=== PATIENT | female | born 1980 | race Asian ===

== ENCOUNTER → 2019-11-28 10:38 | Outpatient (CLI) | payer OTHER, SELFPAY ==
[2019-11-28 12:03] LABS: Add Manual Diff / Slide Review NO; Basophils Absolute Auto 0 /uL (0-100); Basophils Percent Auto 0.8 % (0-2); Eosinophils Absolute Auto 100 /uL (0-450); Eosinophils Percent Auto 2.1 % (2-4); Hematocrit 37.9 % (36-46); Hemoglobin 13.3 g/dL (12.0-16.0); Lymphocytes Absolute Auto 1800 /uL (1100-4500); Lymphocytes Percent Auto 40.6 % (25-40); Mean Corpuscular HGB Conc 35.2 % (30-36); Mean Corpuscular Hemoglobin 31.9 PG (26-34); Mean Corpuscular Volume 90.7 fL (80-100); Monocytes Absolute Auto 300 /uL (0-900); Monocytes Percent Auto 7.3 % (3-14); Neutrophils Absolute Auto 2200 /uL (1500-7000); Neutrophils Percent Auto 49.2 % (50-75); Platelet Count 214 X10^3/uL (150-400); Red Blood Cell Count 4.18 X10^6/uL (4.0-5.2); Red Cell Distribution Width 12.2 % (11.6-14.8); White Blood Cell Count 4.5 X10^3/uL (4.5-11.0)
[2019-11-28 12:34] LABS: Alanine Aminotransferase 16 IU/L (<35); Albumin 4.3 g/dL (3.5-5.0); Albumin Globulin Ratio 1.5 (1.0-2.8); Alkaline Phosphatase 55 U/L (38-126); Aspartate Aminotransferase 25 IU/L (14-36); Bilirubin Total 1.1 mg/dL (0.2-1.3); Blood Urea Nitrogen 11 mg/dL (7-17); Calcium 9.5 mg/dL (8.4-10.2); Carbon Dioxide 26 mmol/L (22-32); Chloride 103 mmol/L (98-107); Estimated Glomerular Filt Rate > 60.0 mL/min (>60); Globulin 2.9 g/dL (1.7-4.1); Glucose 88 mg/dL (70-100); HEMOLYSIS < 15 (0-50); Potassium 4.4 mmol/L (3.4-5.1); Sodium 137 mmol/L (137-145); Total Protein 7.2 g/dL (6.3-8.2)
[2019-11-28 12:50] LABS: Vitamin D 25 Hydroxy (D3) 31.1 ng/mL (30.0-100.0)
[2019-11-28 13:03] LABS: TSH w/ Reflex to FT4 1.11 uIU/mL (0.47-4.68)
== END ==
PROVIDERS: Referring Provider Registered Nurse Diabetes Educator; Visit Provider Registered Nurse Diabetes Educator
DX: Z00.00 Encounter for general adult medical examination without abnormal findings (principal); R45.89 Other symptoms and signs involving emotional state; R53.83 Other fatigue; R63.5 Abnormal weight gain
CPT/HCPCS: 36415; 80053; 82306; 84443; 85025

== ENCOUNTER → 2020-10-02 15:33 | Outpatient (CLI) | payer OTHER, SELFPAY ==
[2020-10-02 16:30] LABS: Hematocrit 38.9 % (36-46); Hemoglobin 13.4 g/dL (12.0-16.0); Mean Corpuscular HGB Conc 34.4 % (30-36); Mean Corpuscular Hemoglobin 31.7 PG (26-34); Mean Corpuscular Volume 92.1 fL (80-100); Platelet Count 239 X10^3/uL (150-400); Red Blood Cell Count 4.23 X10^6/uL (4.0-5.2); Red Cell Distribution Width 12.5 % (11.6-14.8); White Blood Cell Count 5.3 X10^3/uL (4.5-11.0)
[2020-10-02 17:08] LABS: HEMOLYSIS < 15 (0-50); Iron 116 ug/dL (37-170)
[2020-10-02 17:19] LABS: Percent Iron Saturation 35 % (15-50); Total Iron Binding Capacity 334 ug/dL (265-497); Transferrin 255 mg/dL (206-381)
[2020-10-02 17:26] LABS: Follicle Stimulating Hormone 5.98 mIU/mL
[2020-10-02 17:42] LABS: Testosterone 30.5 ng/dL (5.71-77.0)
== END ==
PROVIDERS: PCP Registered Nurse Diabetes Educator; Referring Provider Registered Nurse Diabetes Educator; Visit Provider Registered Nurse Diabetes Educator
DX: L65.9 Nonscarring hair loss, unspecified (principal)
CPT/HCPCS: 36415; 82627; 82670; 83001; 83540; 83550; 84403; 84443; 85027

== ENCOUNTER 2021-11-10 13:30 | Outpatient (RCR) | payer OTHER, SELFPAY ==
--- NOTE | 2021-03-24 16:30 | ST.OPIE ---
Visit Care Team Role Provider Type SALMA Gonzalez Attending Provider Advanced Instructional Developer Family Provider Primary Care Provider Referring Provider Specialty: Medical Address: [address] [place] [address], [facility] Email: [email or web address] Speech-Language Pathology Initial Evaluation CATEGORY DIRECTOR Motor Speech Evaluation Start: 03/24/21 17:15 Freq: Status: Active Protocol: Document 03/24/21 17:16 RAMÓN (Rec: 03/24/21 17:19 RAMÓN [id number]) Motor Speech Evaluation Session Time Visit Start Time 15:30 Visit Stop Time 16:00 Total Visit Minutes 30 Visit Information Visit Number Initial Evaluation Plan of Care Dates 03/24/21 - 06/22/20 Insurance Information [facility] Health Plan Setting Setting Outpatient Care Next Note Type Next Note Type Treatment Note Patient History Source: [employer] Patient History The pt is a 40-yr-old female with complete R) hearing loss augmented by cochlear implant (placed 10/2020) and L) hearing impairment (since childhood) augmented by hearing aid. She is of Faroese decent living with her Palestinian and their 3 [place]. She relies heavily on lip reading and interpretation from to understand others. The pt had multiple courses of Speech Therapy during childhood and young adult years, living in [place] for a time as a teenager and attending the [employer]. Prior to that, she was mainstreamed in oral schools. 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 The pt expressed the desire to improve her speech intelligibility as she becomes accustomed to using the cochlear implant, both by improving articulatory precision and by improving her Swedish language skills. She stated she may like to modify her accent to sound more Palestinian. She expressed feeling frustrated with her speech, as it sounds muffled to her, and she finds pronunciation of /s/ and th to be particularly difficult. Since placement of the cochlear implant, she hears high frequency sounds more acutely and finds them distracting and sometimes overwhelming. The pt is moderately proficient in Swedish but states that conversations with her , who speaks little Faroese, are her only opportunities for meaningful practice with the Swedish language. Her daughters, ages 5, 14 and 16, all speak to her in Faroese. Particularly because of COVID-19, she socializes very minimally. She uses the [employer] and [employer] apps on her phone ( recommended by Job Order Clerk) to assist with recognition and discrimination of environmental and speech sounds , and she watches YouTube and TV to practice Swedish, as well. The bluetooth on her cell phone and home TV stream directly to her cochlear implant. Referral Referring Physician SALMA Goznalez Reason for Referral Cochlear Implant Status Mental Status Mental Status Alert,Responsive,Cooperative Subjective Observations Subjective The pt arrived on time accompanied by her , Rafy, and young daughter who were present throughout the session. The pt stated the couple needed to strip picker their other dtr from school soon, and so the session was limited in time to accommodate this. To help facilitate communication by means of lip reading, both the pt and Clinician wore clear face shipley in place of masks as COVID-19 preventative measures . The pt provided case history, supplemented by her , who clarified details when either the Clinician or patient had difficulty understanding each other. Oral Motor Lips Function WNL Tongue Function WNL Jaw Function WNL Respiration/Phonation Phonation Other Cul-de-Sac Function WNL Loudness WFL Conversation Other Cul-de-Sac Duration WNL Function Moderately Impaired Loudness WFL Diadochokinetic Rates Speech Intelligibility Standardized Tests Assessment Name(s) Informal assessment of conversational speech sample Phoneme Severity Moderately Impaired Word Severity Moderately Impaired Sentence Severity Moderately Impaired Conversation Severity Moderately Impaired Awareness/Strategy Use Description Type of awareness/use Uses intermittently Findings Details Motor Speech Function Moderate Impairment Assessment Details Assessment Assessment was based on analysis of conversational speech due to time constraints . Formal, standardized testing will be administered at next session. The pt's speech was 44% intelligible to this unfamiliar listener, who depended heavily on contextual cues and lip reading to understand the pt's speech. The presence of her spouse as harvester operator was helpful, and the pt is frequently reliant on his assistance when communicating with unfamiliar conversation partners. Intelligibility is reduced secondary to imprecise articulation, cul-de-sac resonance, and mechoopda language accent. Of note, muted voiceless plosive phonemes and fricatives were perceived, as well as a repetitive rising inflection at the ends of sentences, whether statements or questions, with an otherwise moderately monotone pitch. Prognosis Rehabilitation Potential Good Recommendations Treatment Recommended Yes Frequency 1x/wk (may taper over duration of treatment) Duration 6 mos Short Term Goals 1. The pt will participate in further assessment of speech sound production impacting intelligibility to guide POC. 2. The pt will perform oral motor tasks relevant to targeted speech sound production with min-mod cuing to improve speech intelligibility. 3. The pt will discriminate between speech sounds with 80% accuracy to increase phonemic awareness to promote improved speech intelligibility and functional communication. Additional goals to be added pending further assessment findings. Instructional Consultant Goals 1. The pt will produce speech with 90% intelligibility to improve her ability to communicate effectively with a variety of partners. 2. Given information of moderate length and complexity presented orally and without access to lip reading, the pt will demonstrate comprehension with 75% accuracy to improve speech sound discrimination necessary for auditory comprehension in functional conversations. 3. Using lip reading as needed , the pt will communicate effectively with a variety of conversation partners within her community in 90% of opportunities, as measured by pt/family report and clinician judgment. Additional goals to be added pending further assessment findings. Patient/Family Education Education Described results of evaluation,Patient Understanding,Family Understanding,Patient Needs More Info,Family Needs More Info
--- NOTE | 2021-03-31 17:21 | ST.OPTN ---
Visit Care Team Role Provider Type SALMA Gonzalez Attending Provider Advanced Assistant Pressman Family Provider Primary Care Provider Referring Provider Address: [address] [place] [address], [id number] BUSINESS LAW TEACHER Treatment Note BUSINESS LAW TEACHER Treatment Note Start: 03/24/21 17:15 Freq: Status: Active Protocol: Document 03/31/21 17:20 RAMÓN (Rec: 03/31/21 17:24 RAMÓN [id number]) Speech Pathology Treatment Note Session Time Visit Start Time 10:30 Visit Stop Time 11:30 Total Visit Minutes 60 Visit Information Visit Number 1 Plan of Care Dates 03/24/21 - 06/22/20 Insurance Information Family Health Plan Setting Treatment Setting Outpatient Care Visit Type Note Type Treatment Note Next Note Type Next Note Type Treatment Note General Information General Information The pt is a 40-yr-old female with complete R) hearing loss augmented by cochlear implant (placed 10/2020) and L) hearing impairment (since childhood) augmented by hearing aid. She is of Luxembourger decent living with her Nigerien and their 3 [place]. She relies heavily on lip reading and interpretation from to understand others. The pt had multiple courses of Speech Therapy during childhood and young adult years, living in [place] for a time as a teenager and attending the [employer] [place] [employer]. Prior to that, she was mainstreamed in oral schools. 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 The pt expressed the desire to improve her speech intelligibility as she becomes accustomed to using the cochlear implant, both by improving articulatory precision and by improving her Comoran language skills. She stated she may like to modify her accent to sound more Nigerien. She expressed feeling frustrated with her speech, as it sounds muffled to her, and she finds pronunciation of /s/ and th to be particularly difficult. Since placement of the cochlear implant, she hears high frequency sounds more acutely and finds them distracting and sometimes overwhelming. The pt is moderately proficient in Comoran but states that conversations with her , who speaks little Luxembourger, are her only opportunities for meaningful practice with the Comoran language. Her daughters, ages 5, 14 and 16, all speak to her in Luxembourger. Particularly because of COVID-19, she socializes very minimally. She uses the [employer] and [employer] apps on her phone ( recommended by Dry Cleaning Manager) to assist with recognition and discrimination of environmental and speech sounds, and she watches YouTube and TV to practice Comoran, as well. The bluetooth on her cell phone and home TV stream directly to her cochlear implant. Subjective Observations/Patient Presentation Pt arrived on time. No new complaints. Pt wondered if it would be helpful to keep a journal related to her speech and hearing challenges relevant to Speech Therapy. BUSINESS LAW TEACHER was supported this. Chief Complaint(s) Speech,Language,Other Additional Areas of Concern Auditory discrimination Patient Knowledge/Awareness of BUSINESS LAW TEACHER Role Excellent in Treatment Objective Short Term Goals 1. The pt will participate in further assessment of speech sound production impacting intelligibility to guide POC. 2. The pt will perform oral motor tasks relevant to targeted speech sound production with min-mod cuing to improve speech intelligibility. 3. The pt will discriminate between speech sounds with 80% accuracy to increase phonemic awareness to promote improved speech intelligibility and functional communication. Additional goals to be added pending further assessment findings. Blindstitch Lining Feller Goals 1. The pt will produce speech with 80% intelligibility to improve her ability to communicate effectively with a variety of partners. 2. Given information of moderate length and complexity presented orally and without access to lip reading, the pt will demonstrate comprehension with 75% accuracy to improve speech sound discrimination necessary for auditory comprehension in functional conversations. 3. Using lip reading as needed , the pt will communicate effectively with a variety of conversation partners within her community in 90% of opportunities, as measured by pt/family report and clinician judgment. Additional goals to be added pending further assessment findings. Treatment Activities Speech analysis was made both in conversation and in administration of a standardized test of articulation. It is important to note that phoneme distortions result from both the pt's impaired hearing status and from her non-wyandotte Comoran accent. Administered Lynch-Fristoe 2 Test of Articulation noting distortions of the following consonants: /s/ as ch, /t/, /z/, j or is omitted /z/ as j or zh /v/ as /b/ /r/ as /w/, /l/ or rhotic/ vowelized r sh as ch /w/ as /v/ The pt produced th (both voiced and voiceless) precisely in isolation, words, and short utterances, but these were frequently distorted to /d/, /t/, or omitted in conversation. Blends: /b;/ as /br /fl/ as fuhl (where uh = shwa phoneme) /fr/ as /fl/ /kl/ as saw /pl/ as puhl /sl/ as lorenza /sp/ as juhpuh /sw/ as /tw/ /tr/ as tuhr) Moderate and frequent distortion of vowels was also noted, consistent with accented differences between Luxembourger and Comoran, and include: Short i (sit) as long e (seat) Short e / Shwa (watches) as long e (watcheez) ow (flower) as short a (as in flaccid) Additionally, the pt exhibited mixed hyper/hyponasal and cul -de-sac vocal resonance as well as imprecise articulation and vowel distortions. Speech intelligibility during conversation was <10%. With reduced rate of speech and length of utterance during structured tasks, speech intelligibility improved to ~25% with a known context and access to lip reading. Assessment Patient Response to Treatment Good Rehab Potential Excellent Impairments Identified Auditory Processing,Expressive Language,Speech Intelligibility Additional Impairments Identified Expressive/Receptive language with hearing loss, AKINS and Cochlear implant Assessment of Improvement The pt's speech intelligibility is significantly diminished secondary hearing impairment, non-wyandotte accent, and rate of speech. These result in imprecise articulation of consonants, vowel distortions, and hyop/hypernasal and cul- de-sac resonance. Poor control of the WOODYARD OPERATOR valve is likely present d/t lack of auditory feedback, leading to the resonance disorder. The pt is stimulable to most individual phonemes, with the greatest difficulty in producing /s/, sh, /z/, /r/, and th. The conversation partner carries a large burden of interpretation of speech, depending on context and from lip reading to understand communication from the pt. The pt exhibits strong awareness of deficits, stimulability for precise articulation, and is highly motivated to improve. Prognosis is good but anticipated to require a lengthy course (1 yr or more) of skilled intervention. Reviewed with Patient Goals,Progress Being Made,Home Exercise Program Patient/Caregiver Understanding Excellent Plan Amount of Therapy Recommended 6 Months Frequency of Treatment Once a Week Length of Session 45 Minutes Treatment Emphasis Next Session Auditory discrimination assessment Therapeutic Contents Auditory Comprehension,Client Education,Expressive Language Training,Home Exercise Program ,Intelligibility,Oral Motor Training Provided Patient/Caregiver Instruction Home Exercise Program,Plan of Care,Questions/Concerns Therapy Recommendations Continue with Current Program
--- NOTE | 2021-04-07 14:09 | ST.OPTN ---
Visit Care Team Role Provider Type SALMA Gonzalez Attending Provider Advanced Furniture Shampooer Family Provider Primary Care Provider Referring Provider Address: [address] [place] [address], [id number] TUMBLER TENDER Treatment Note TUMBLER TENDER Treatment Note Start: 03/24/21 17:15 Freq: Status: Active Protocol: Document 04/07/21 13:40 RAMÓN (Rec: 04/07/21 14:09 RAMÓN [id number]) Speech Pathology Treatment Note Session Time Visit Start Time 09:30 Visit Stop Time 10:25 Total Visit Minutes 55 Visit Information Visit Number 2 Plan of Care Dates 03/24/21 - 06/22/20 Insurance Information Family Health Plan Setting Treatment Setting Outpatient Care Visit Type Note Type Treatment Note Next Note Type Next Note Type Treatment Note General Information General Information The pt is a 40-yr-old female with complete R) hearing loss augmented by cochlear implant (placed 10/2020) and L) hearing impairment (since childhood) augmented by hearing aid. She is of South African decent living with her Russian and their 3 [place]. She relies heavily on lip reading and interpretation from to understand others. The pt had multiple courses of Speech Therapy during childhood and young adult years, living in [place] for a time as a teenager and attending the [place] [employer]. Prior to that, she was mainstreamed in oral schools. 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 The pt expressed the desire to improve her speech intelligibility as she becomes accustomed to using the cochlear implant, both by improving articulatory precision and by improving her Armenian language skills. She stated she may like to modify her accent to sound more Russian. She expressed feeling frustrated with her speech, as it sounds muffled to her, and she finds pronunciation of /s/ and th to be particularly difficult. Since placement of the cochlear implant, she hears high frequency sounds more acutely and finds them distracting and sometimes overwhelming. The pt is moderately proficient in Armenian but states that conversations with her , who speaks little South African, are her only opportunities for meaningful practice with the Armenian language. Her daughters, ages 5, 14 and 16, all speak to her in South African. Particularly because of COVID-19, she socializes very minimally. She uses the [employer] and [employer] apps on her phone ( recommended by Poultry Service Technician) to assist with recognition and discrimination of environmental and speech sounds, and she watches YouTube and TV to practice Armenian, as well. The bluetooth on her cell phone and home TV stream directly to her cochlear implant. Subjective Observations/Patient Presentation Pt arrived on time with 2 journals; one to track communicative challenges outside of therapy and the other for therapy targets and homework. No new complaints. She stated that she has one acquaintance who lives in [facility], who is also South African with cochlear implants and to a Macanese (minto Armenian speaker). She has not met this woman, but knows through other associations and will consider attempting to meet her in the new year as a potential conversation partner and friend, as the pt has very few friends in this area. As such, she is afraid to use Armenian in the community and finds that people get frustrated with not being able to understand her, which she described as being traumatic and causes mental blocks when she attempts to communicate. These factors increase her isolation and reduce opportunities to practice her skills. Chief Complaint(s) Speech,Language,Other Additional Areas of Concern Auditory discrimination Patient Knowledge/Awareness of TUMBLER TENDER Role Excellent in Treatment Objective Short Term Goals 1. The pt will participate in further assessment of speech sound production impacting intelligibility to guide POC. 2. The pt will perform oral motor tasks relevant to targeted speech sound production with min-mod cuing to improve speech intelligibility. 3. The pt will discriminate between speech sounds with 80% accuracy to increase phonemic awareness to promote improved speech intelligibility and functional communication. Additional goals to be added pending further assessment findings. Group Home Goals 1. The pt will produce speech with 80% intelligibility to improve her ability to communicate effectively with a variety of partners. 2. Given information of moderate length and complexity presented orally and without access to lip reading, the pt will demonstrate comprehension with 75% accuracy to improve speech sound discrimination necessary for auditory comprehension in functional conversations. 3. Using lip reading as needed , the pt will communicate effectively with a variety of conversation partners within her community in 90% of opportunities, as measured by pt/family report and clinician judgment. Additional goals to be added pending further assessment findings. Treatment Activities Assessed the pt's auditory discrimination of consonant phonemes using minimal pairs, both with the Clinician's face masked and unmasked. With TUMBLER TENDER 's face masked, the pt discriminated CVC words with 10% acc. With visual access to TUMBLER TENDER's face for lip reading, she scored 67% accuracy. Errors were not consistent but were made in both initial and final positions of words, and frequent vowel errors were made as well. 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 She expressed feeling that South African speakers understand her spoken speech; Armenian speakers do not. The pt is not currently participating in any Armenian language training, which is recommended. Discussed this complex POC. Discussed use of speech generating device as a tool to increase the pt's immediate ability to communicate with others, while also using it as a speech training device. An example of this was provided via Zongd tool. The pt was agreeable to this. TUMBLER TENDER agreed to research/consult with AAC providers to identify the best device to meet the pt's needs. Also recommended the pt download the [employer] language training sandy to advance her Armenian language skills. The pt was agreeable to this. Auditory comprehension, phonemic discrimination, and speech/ expressive language skills will be build around the language provided in this sandy. Assessment Patient Response to Treatment Good Rehab Potential Excellent Impairments Identified Auditory Processing,Expressive Language,Speech Intelligibility Additional Impairments Identified Expressive/Receptive language with hearing loss, AKINS and Cochlear implant Assessment of Improvement The pt exhibited very poor auditory discrimination of consonants and vowels within single words, with a variety of errors in all positions of words. She is significantly aided by lip reading. Although her Armenian language skills are sufficient for basic to moderately complex conversations, language limitations interfere with her ability to discriminate words and increase her reliance on contexts. She reports that South African speakers understand her South African speech. If so, than her South African accent likely contributes significantly to her reduced intelligibility in Armenian, given her very low intelligibility levels. Her situation is very complex given these many factors that influence Armenian speech recognition and expression, both from a speech and a language standpoint. Will attempt to build a POC around an Armenian language training tool that will provide language at the appropriate language learning level that will also be used for phonemic discrimination and speech articulation/accent modification training. A speech generating device would be highly beneficial to increase the pt's ability to communicate effectively while in the process of improving her speech intelligibility and can serve as a learning device for these skills as well. Reviewed with Patient Goals,Progress Being Made,Home Exercise Program Patient/Caregiver Understanding Excellent Plan Amount of Therapy Recommended 6 Months Frequency of Treatment Once a Week Length of Session 45 Minutes Treatment Emphasis Next Session Initiate use of [employer] Therapeutic sandy; Initiate collaboration w/ AAC device rep Therapeutic Contents Auditory Comprehension,Client Education,Expressive Language Training,Home Exercise Program ,Intelligibility,Oral Motor Training Provided Patient/Caregiver Instruction Home Exercise Program,Plan of Care,Questions/Concerns Therapy Recommendations Continue with Current Program
--- NOTE | 2021-05-06 17:56 | ST.OPTN ---
Visit Care Team Role Provider Type SALMA Gonzalez Attending Provider Advanced Timber Management Professor Family Provider Primary Care Provider Referring Provider Address: [address] [place] [address], [id number] CARTRIDGE FEEDER Treatment Note CARTRIDGE FEEDER Treatment Note Start: 03/24/21 17:15 Freq: Status: Active Protocol: Document 05/06/21 18:18 RAMÓN (Rec: 05/06/21 18:18 RAMÓN [id number]) Speech Pathology Treatment Note Session Time Visit Start Time 10:30 Visit Stop Time 11:30 Total Visit Minutes 60 Visit Information Visit Number 4 Plan of Care Dates 03/24/21 - 06/22/20 Insurance Information Family Health Plan Setting Treatment Setting Outpatient Care Visit Type Note Type Treatment Note Next Note Type Next Note Type Treatment Note General Information General Information The pt is a 40-yr-old female with complete R) hearing loss augmented by cochlear implant (placed 10/2020) and L) hearing impairment (since childhood) augmented by hearing aid. She is of Singaporean decent living with her Martiniquais and their 3 [place] in the [place]. She relies heavily on lip reading and interpretation from to understand others. The pt had multiple courses of Speech Therapy during childhood and young adult years, living in [place] for a time as a teenager and attending the [employer]. Prior to that, she was mainstreamed in oral schools. 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 The pt expressed the desire to improve her speech intelligibility as she becomes accustomed to using the cochlear implant, both by improving articulatory precision and by improving her Estonian language skills. She stated she may like to modify her accent to sound more Martiniquais. She expressed feeling frustrated with her speech, as it sounds muffled to her, and she finds pronunciation of /s/ and th to be particularly difficult. Since placement of the cochlear implant, she hears high frequency sounds more acutely and finds them distracting and sometimes overwhelming. The pt is moderately proficient in Estonian but states that conversations with her , who speaks little Singaporean, are her only opportunities for meaningful practice with the Estonian language. Her daughters, ages 5, 14 and 16, all speak to her in Singaporean. Particularly because of COVID-19, she socializes very minimally. She uses the [employer] and [employer] apps on her phone ( recommended by Loose Hand Packer) to assist with recognition and discrimination of environmental and speech sounds, and she watches YouTube and TV to practice Estonian, as well. The bluetooth on her cell phone and home TV stream directly to her cochlear implant. Subjective Observations/Patient Presentation Pt arrived on time with homework journals. She reported difficulty in discriminating between sh and ch in her own speech during home practice. Chief Complaint(s) Speech,Language,Other Additional Areas of Concern Auditory discrimination Patient Knowledge/Awareness of CARTRIDGE FEEDER Role Excellent in Treatment Objective Short Term Goals 1. The pt will participate in further assessment of speech sound production impacting intelligibility to guide POC. 2. The pt will perform oral motor tasks relevant to targeted speech sound production with min-mod cuing to improve speech intelligibility. 3. The pt will discriminate between speech sounds with 80% accuracy to increase phonemic awareness to promote improved speech intelligibility and functional communication. Additional goals to be added pending further assessment findings. Chalk Molding Machine Operator Goals 1. The pt will produce speech with 80% intelligibility to improve her ability to communicate effectively with a variety of partners. 2. Given information of moderate length and complexity presented orally and without access to lip reading, the pt will demonstrate comprehension with 75% accuracy to improve speech sound discrimination necessary for auditory comprehension in functional conversations. 3. Using lip reading as needed , the pt will communicate effectively with a variety of conversation partners within her community in 90% of opportunities, as measured by pt/family report and clinician judgment. Additional goals to be added pending further assessment findings. Treatment Activities Continued training in speech articulation of /s/, sh, ch and /t/, with primary focus on /s/ and sh oral motor positioning and sound discrimination. Over the course of the session, the pt' s ability to produce each sound improved, becoming increasingly distinct from the others and with more precision. Needs reinforcement . A video demonstration of the clinician's production of each sound was made and shared with pt for home practice. Assessment Patient Response to Treatment Good Rehab Potential Excellent Impairments Identified Auditory Processing,Expressive Language,Speech Intelligibility Additional Impairments Identified Expressive/Receptive language with hearing loss, AKINS and Cochlear implant Assessment of Improvement Notable improvement made today in the pt's articulatory precision particularly of /s/ and sh in isolation. Reviewed with Patient Goals,Progress Being Made,Home Exercise Program Patient/Caregiver Understanding Excellent Plan Amount of Therapy Recommended 6 Months Frequency of Treatment Once a Week Length of Session 45 Minutes Treatment Emphasis Next Session Initiate collaboration w/ AAC device rep? Cont training sh, ch, /s/ Therapeutic Contents Auditory Comprehension,Client Education,Expressive Language Training,Home Exercise Program ,Intelligibility,Oral Motor Training Provided Patient/Caregiver Instruction Home Exercise Program,Plan of Care,Questions/Concerns Therapy Recommendations Continue with Current Program
--- NOTE | 2021-05-13 13:41 | ST.OPTN ---
Visit Care Team Role Provider Type SALMA Gonzalez Attending Provider Advanced Life Enrichment Assistant Family Provider Primary Care Provider Referring Provider Address: [address] [place] [address], [id number] ASSOCIATE DIRECTOR OF SALES Treatment Note ASSOCIATE DIRECTOR OF SALES Treatment Note Start: 03/24/21 17:15 Freq: Status: Active Protocol: Document 05/13/21 13:33 RAMÓN (Rec: 05/13/21 13:41 RAMÓN [id number]) Speech Pathology Treatment Note Session Time Visit Start Time 10:30 Visit Stop Time 11:30 Total Visit Minutes 60 Visit Information Visit Number 4 Plan of Care Dates 03/24/21 - 06/22/20 Insurance Information Family Health Plan Setting Treatment Setting Outpatient Care Visit Type Note Type Treatment Note Next Note Type Next Note Type Treatment Note General Information General Information The pt is a 40-yr-old female with complete R) hearing loss augmented by cochlear implant (placed 10/2020) and L) hearing impairment (since childhood) augmented by hearing aid. She is of Filipino decent living with her British and their 3 [place] the [place]. She relies heavily on lip reading and interpretation from to understand others. The pt had multiple courses of Speech Therapy during childhood and young adult years, living in [place] for a time as a teenager and attending the [place] [employer]. Prior to that, she was mainstreamed in oral schools. 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 The pt expressed the desire to improve her speech intelligibility as she becomes accustomed to using the cochlear implant, both by improving articulatory precision and by improving her Congolese language skills. She stated she may like to modify her accent to sound more British. She expressed feeling frustrated with her speech, as it sounds muffled to her, and she finds pronunciation of /s/ and th to be particularly difficult. Since placement of the cochlear implant, she hears high frequency sounds more acutely and finds them distracting and sometimes overwhelming. The pt is moderately proficient in Congolese but states that conversations with her , who speaks little Filipino, are her only opportunities for meaningful practice with the Congolese language. Her daughters, ages 5, 14 and 16, all speak to her in Filipino. Particularly because of COVID-19, she socializes very minimally. She uses the [employer] and [employer] apps on her phone ( recommended by Quality Tester) to assist with recognition and discrimination of environmental and speech sounds, and she watches YouTube and TV to practice Congolese, as well. The bluetooth on her cell phone and home TV stream directly to her cochlear implant. Subjective Observations/Patient Presentation Pt arrived on time with homework journals. She reported difficulty in discriminating between sh and ch in her own speech during home practice. Chief Complaint(s) Speech,Language,Other Additional Areas of Concern Auditory discrimination Patient Knowledge/Awareness of ASSOCIATE DIRECTOR OF SALES Role Excellent in Treatment Objective Short Term Goals 1. The pt will participate in further assessment of speech sound production impacting intelligibility to guide POC. 2. The pt will perform oral motor tasks relevant to targeted speech sound production with min-mod cuing to improve speech intelligibility. 3. The pt will discriminate between speech sounds with 80% accuracy to increase phonemic awareness to promote improved speech intelligibility and functional communication. Additional goals to be added pending further assessment findings. Globe Tester Goals 1. The pt will produce speech with 80% intelligibility to improve her ability to communicate effectively with a variety of partners. 2. Given information of moderate length and complexity presented orally and without access to lip reading, the pt will demonstrate comprehension with 75% accuracy to improve speech sound discrimination necessary for auditory comprehension in functional conversations. 3. Using lip reading as needed , the pt will communicate effectively with a variety of conversation partners within her community in 90% of opportunities, as measured by pt/family report and clinician judgment. Additional goals to be added pending further assessment findings. Treatment Activities Continued training in speech articulation of /s/, sh, ch and /t/, with primary focus on /s/ and sh oral motor positioning and sound discrimination. Over the course of the session, the pt' s ability to produce each sound improved, becoming increasingly distinct from the others and with more precision. Needs reinforcement . Pt discriminated sounds produced by ASSOCIATE DIRECTOR OF SALES with visual access to ASSOCIATE DIRECTOR OF SALES's mouth with 80% acc. When visual presentation was removed, accuracy dropped to 25%. After additional training and feedback, pt discriminated sounds without visual access with 100% accuracy, reporting feeling uncertain x3 of 10 trials. Initiated training of same sounds in CVC words, but pt exhibited difficulty voicing vowels. Task was reduced to CV syllables. Pt was then able to transition from unvoiced consonants to vowels but continued with discernable differences in consonant productions, particularly /s/, which often sounded like sh or ch. Needs further training. Assessment Patient Response to Treatment Good Rehab Potential Excellent Impairments Identified Auditory Processing,Expressive Language,Speech Intelligibility Additional Impairments Identified Expressive/Receptive language with hearing loss, AKINS and Cochlear implant Assessment of Improvement Pt continues to make progress with target sounds in isolation but with decreased consonant accuracy in CV syllables. In CVC words, the pt exhibited difficulty with voicing of vowels. Suspect this will improve when words are in sentence contexts and other voicing is present. Reviewed with Patient Goals,Progress Being Made,Home Exercise Program Patient/Caregiver Understanding Excellent Plan Amount of Therapy Recommended 6 Months Frequency of Treatment Once a Week Length of Session 45 Minutes Treatment Emphasis Next Session Cont training sh, ch, /s/, /t/ in isolation, CV syllables, words in phrases Therapeutic Contents Auditory Comprehension,Client Education,Expressive Language Training,Home Exercise Program ,Intelligibility,Oral Motor Training Provided Patient/Caregiver Instruction Home Exercise Program,Plan of Care,Questions/Concerns Therapy Recommendations Continue with Current Program
--- NOTE | 2021-06-02 17:49 | ST.OPTN ---
Visit Care Team Role Provider Type SALMA Gonzalez Attending Provider Advanced Mini Baccarat Dealer Family Provider Primary Care Provider Referring Provider Address: [address] [place] [address], [id number] INTERNATIONAL RELATIONS PROFESSOR Treatment Note INTERNATIONAL RELATIONS PROFESSOR Treatment Note Start: 03/24/21 17:15 Freq: Status: Active Protocol: Document 06/02/21 17:32 RAMÓN (Rec: 06/02/21 17:49 RAMÓN [id number]) Speech Pathology Treatment Note Session Time Visit Start Time 12:40 Visit Stop Time 13:25 Total Visit Minutes 45 Visit Information Visit Number 5 (+eval =6) Plan of Care Dates 03/24/21 - 06/22/20 Insurance Information [facility] Plan Setting Treatment Setting Outpatient Care Visit Type Note Type Treatment Note Next Note Type Next Note Type Treatment Note General Information General Information The pt is a 40-yr-old female with complete R) hearing loss augmented by cochlear implant (placed 10/2020) and L) hearing impairment (since childhood) augmented by hearing aid. She is of Monegasque decent living with her Russian and their 3 children in the . She relies heavily on lip reading and interpretation from to understand others. The pt had multiple courses of Speech Therapy during childhood and young adult years, living in [place] for a time as a teenager and attending the [employer]. Prior to that, she was mainstreamed in oral schools. 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 The pt expressed the desire to improve her speech intelligibility as she becomes accustomed to using the cochlear implant, both by improving articulatory precision and by improving her Angolan language skills. She stated she may like to modify her accent to sound more Russian. She expressed feeling frustrated with her speech, as it sounds muffled to her, and she finds pronunciation of /s/ and th to be particularly difficult. Since placement of the cochlear implant, she hears high frequency sounds more acutely and finds them distracting and sometimes overwhelming. The pt is moderately proficient in Angolan but states that conversations with her , who speaks little Monegasque, are her only opportunities for meaningful practice with the Angolan language. Her daughters, ages 5, 14 and 16, all speak to her in Monegasque. Particularly because of COVID-19, she socializes very minimally. She uses the [employer] and [employer] apps on her phone ( recommended by Mint Wafer Depositor) to assist with recognition and discrimination of environmental and speech sounds, and she watches YouTube and TV to practice Angolan, as well. The bluetooth on her cell phone and home TV stream directly to her cochlear implant. Subjective Observations/Patient Presentation Pt arrived with homework and journals. Chief Complaint(s) Speech,Language,Other Additional Areas of Concern Auditory discrimination Patient Knowledge/Awareness of INTERNATIONAL RELATIONS PROFESSOR Role Excellent in Treatment Objective Short Term Goals 1. The pt will participate in further assessment of speech sound production impacting intelligibility to guide POC. 2. The pt will perform oral motor tasks relevant to targeted speech sound production with min-mod cuing to improve speech intelligibility. 3. The pt will discriminate between speech sounds with 80% accuracy to increase phonemic awareness to promote improved speech intelligibility and functional communication. Additional goals to be added pending further assessment findings. General Service Officer Goals 1. The pt will produce speech with 80% intelligibility to improve her ability to communicate effectively with a variety of partners. 2. Given information of moderate length and complexity presented orally and without access to lip reading, the pt will demonstrate comprehension with 75% accuracy to improve speech sound discrimination necessary for auditory comprehension in functional conversations. 3. Using lip reading as needed , the pt will communicate effectively with a variety of conversation partners within her community in 90% of opportunities, as measured by pt/family report and clinician judgment. Additional goals to be added pending further assessment findings. Treatment Activities The pt is not familiar with IPA symbols. Therefore, initiated training in short and long vowel sounds, auditory discrimination and sound production, using word pairs (e.g., cot vs coat). The pt benefited from producing vowels first in CVC words, then isolating the vowel. Oral motor demonstration and shaping was provided. Pt had greatest difficulty with short and long o (i.e., /a/ vs /o/) and benefited from isolating /o/ and /u/ with lip rounding vs all other vowels without lip rounding. Following training using word pairs, isolated vowel production with direct model (60% acc). A list of words for each phoneme was provided for home practice. The pt recorded the session for home review/practice. During conversation, the pt was ~50% intelligible, requiring frequent use of writing to communicate complex sentences and lengthy ideas. Intelligibility when pt was wearing a mask was reduced to ~40%, improved with use of clear face shield that allowed for lip reading by INTERNATIONAL RELATIONS PROFESSOR. Assessment Patient Response to Treatment Good Rehab Potential Excellent Impairments Identified Auditory Processing,Expressive Language,Speech Intelligibility Additional Impairments Identified Expressive/Receptive language with hearing loss, AKINS and Cochlear implant Assessment of Improvement Pt was highly stimulable to production of short and long vowel sound productions, best able to produce in familiar words. She was able to copy direct models for most phonemes in isolation with frequent confusion between forms of vowels o and u. Speech intelligiblity continues to be significantly reduced, making functional communication difficult without use of writing, even for this familiar listener. The pt is highly motivated and has made excellent progress with phonemes targeted to date ; however, given the severity of her impairments, continued skilled intervention is medically necessary to improve skills to a functional level. The pt has excellent potential. With adequate access to therapy, prognosis is very good. Without access to therapy, however, the pt will continue to be minimally functional in the primarily hearing community in which she lives, which will likely create greater isolation and significantly reduce quality of life and independence. Reviewed with Patient Goals,Progress Being Made,Home Exercise Program Patient/Caregiver Understanding Excellent Plan Amount of Therapy Recommended 12 Months Frequency of Treatment Once a Week Length of Session 45 Minutes Treatment Emphasis Next Session Cont training vowels in isolation, CV syllables, CVC words Therapeutic Contents Auditory Comprehension,Client Education,Expressive Language Training,Home Exercise Program ,Intelligibility,Oral Motor Training Provided Patient/Caregiver Instruction Home Exercise Program,Plan of Care,Questions/Concerns Therapy Recommendations Continue with Current Program
--- NOTE | 2021-06-16 17:38 | ST.OPTN ---
Visit Care Team Role Provider Type SALMA Gonzalez Attending Provider Advanced Radar Engineering Teacher Family Provider Primary Care Provider Referring Provider Address: [address] [place] [address], [id number] SERVICE PLUMBER Treatment Note SERVICE PLUMBER Treatment Note Start: 03/24/21 17:15 Freq: Status: Active Protocol: Document 06/16/21 17:30 RAMÓN (Rec: 06/16/21 17:38 RAMÓN [id number]) Speech Pathology Treatment Note Session Time Visit Start Time 12:35 Visit Stop Time 13:25 Total Visit Minutes 50 Visit Information Visit Number 04/30 Plan of Care Dates 03/24/21 - 06/22/20 Insurance Information Family Health Plan Setting Treatment Setting Outpatient Care Visit Type Note Type Treatment Note Next Note Type Next Note Type Treatment Note General Information General Information The pt is a 40-yr-old female with complete R) hearing loss augmented by cochlear implant (placed 10/2020) and L) hearing impairment (since childhood) augmented by hearing aid. She is of [place]ian decent living with her [place] and their 3 [place] the [place]. She relies heavily on lip reading and interpretation from to understand others. The pt had multiple courses of Speech Therapy during childhood and young adult years, living in [place] for a time as a teenager and attending the [employer]. Prior to that, she was mainstreamed in oral schools. 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 The pt expressed the desire to improve her speech intelligibility as she becomes accustomed to using the cochlear implant, both by improving articulatory precision and by improving her Cymraes language skills. She stated she may like to modify her accent to sound more [place]. She expressed feeling frustrated with her speech, as it sounds muffled to her, and she finds pronunciation of /s/ and th to be particularly difficult. Since placement of the cochlear implant, she hears high frequency sounds more acutely and finds them distracting and sometimes overwhelming. The pt is moderately proficient in Cymraes but states that conversations with her , who speaks little Colombian, are her only opportunities for meaningful practice with the Cymraes language. Her daughters, ages 5, 14 and 16, all speak to her in Colombian. Particularly because of COVID-19, she socializes very minimally. She uses the liveMag.ro and Procam TV apps on her phone ( recommended by Inside Plant Supervisor) to assist with recognition and discrimination of environmental and speech sounds, and she watches YouTube and TV to practice Cymraes, as well. The bluetooth on her cell phone and home TV stream directly to her cochlear implant. Subjective Observations/Patient Presentation Pt arrived with homework and journals. Chief Complaint(s) Speech,Language,Other Additional Areas of Concern Auditory discrimination Patient Knowledge/Awareness of SERVICE PLUMBER Role Excellent in Treatment Objective Short Term Goals 1. The pt will participate in further assessment of speech sound production impacting intelligibility to guide POC. 2. The pt will perform oral motor tasks relevant to targeted speech sound production with min-mod cuing to improve speech intelligibility. 3. The pt will discriminate between speech sounds with 80% accuracy to increase phonemic awareness to promote improved speech intelligibility and functional communication. Additional goals to be added pending further assessment findings. [facility] Goals 1. The pt will produce speech with 80% intelligibility to improve her ability to communicate effectively with a variety of partners. 2. Given information of moderate length and complexity presented orally and without access to lip reading, the pt will demonstrate comprehension with 75% accuracy to improve speech sound discrimination necessary for auditory comprehension in functional conversations. 3. Using lip reading as needed , the pt will communicate effectively with a variety of conversation partners within her community in 90% of opportunities, as measured by pt/family report and clinician judgment. Additional goals to be added pending further assessment findings. Treatment Activities Continued training of vowel production targeting short a and short u sounds. Given minimal pairs, the pt produced CVC words in isolation with 81% acc; in 2-word phrases with 79% acc; and in 4-word sentences with 80% acc. Occasionally, productions of short u resembled short o sound. Pt was able to correct with feedback and demonstration. During task, words with /s/ and sh were presented ( crash, crush, mast, must). Pt 's productions of sh resembled ch, and pt omitted /s/. Vowel productions were accurate. Skilled feedback was provided, and these words were eliminated from the task. Assessment Patient Response to Treatment Good Rehab Potential Excellent Impairments Identified Auditory Processing,Expressive Language,Speech Intelligibility Additional Impairments Identified Expressive/Receptive language with hearing loss, AKINS and Cochlear implant Assessment of Improvement The pt showed significant improvement with vowel productions with practice. Will target short u and short o at next session to improve discrimination and production of each. The pt continues with difficulty producing high frequency sounds accurately d/ t hearing loss. Will continue to target. Reviewed with Patient Goals,Progress Being Made,Home Exercise Program Patient/Caregiver Understanding Excellent Plan Amount of Therapy Recommended 12 Months Frequency of Treatment Once a Week Length of Session 45 Minutes Treatment Emphasis Next Session Cont training vowels in isolation, CV syllables, CVC words Therapeutic Contents Auditory Comprehension,Client Education,Expressive Language Training,Home Exercise Program ,Intelligibility,Oral Motor Training Provided Patient/Caregiver Instruction Home Exercise Program,Plan of Care,Questions/Concerns Therapy Recommendations Continue with Current Program
--- NOTE | 2021-07-07 16:06 | ST.OPTN ---
Visit Care Team Role Provider Type SALMA Gonzalez Attending Provider Advanced Dental Practitioner Family Provider Primary Care Provider Referring Provider Address: [address] [place] [address], [id number] PACKING ROOM SUPERVISOR Treatment Note PACKING ROOM SUPERVISOR Treatment Note Start: 03/24/21 17:15 Freq: Status: Active Protocol: Document 07/07/21 17:56 RAMÓN (Rec: 07/07/21 17:57 RAMÓN [id number]) Speech Pathology Treatment Note Session Time Visit Start Time 13:30 Visit Stop Time 14:25 Total Visit Minutes 55 Visit Information Visit Number 05/31 Plan of Care Dates 03/24/21 - 06/22/20 Insurance Information [facility] Health Plan Setting Treatment Setting Outpatient Care Visit Type Note Type Treatment Note Next Note Type Next Note Type Treatment Note General Information Patient History The pt is a 40-yr-old female with complete R) hearing loss augmented by cochlear implant (placed 10/2020) and L) hearing impairment (since childhood) augmented by hearing aid. She is of [place] decent living with her [place]ese and their 3 [place]. She relies heavily on lip reading and interpretation from to understand others. The pt had multiple courses of Speech Therapy during childhood and young adult years, living in [place] for a time as a teenager and attending the [employer]. Prior to that, she was mainstreamed in oral schools. 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 The pt expressed the desire to improve her speech intelligibility as she becomes accustomed to using the cochlear implant, both by improving articulatory precision and by improving her [place] Islander language skills. She stated she may like to modify her accent to sound more Maltese. She expressed feeling frustrated with her speech, as it sounds muffled to her, and she finds pronunciation of /s/ and th to be particularly difficult. Since placement of the cochlear implant, she hears high frequency sounds more acutely and finds them distracting and sometimes overwhelming. The pt is moderately proficient in [place] Islander but states that conversations with her , who speaks little Gibraltarian, are her only opportunities for meaningful practice with the [place] Islander language. Her daughters, ages 5, 14 and 16, all speak to her in Gibraltarian. Particularly because of COVID-19, she socializes very minimally. She uses the HearMetafused and [employer] Sounds apps on her phone ( recommended by Cuffer) to assist with recognition and discrimination of environmental and speech sounds, and she watches YouTube and TV to practice [place] Islander, as well. The bluetooth on her cell phone and home TV stream directly to her cochlear implant. Subjective Observations/Patient Presentation Pt arrived with homework and journals. Chief Complaint(s) Speech,Language,Other Additional Areas of Concern Auditory discrimination Patient Knowledge/Awareness of PACKING ROOM SUPERVISOR Role Excellent in Treatment Objective Short Term Goals 1. The pt will participate in further assessment of speech sound production impacting intelligibility to guide POC. 2. The pt will perform oral motor tasks relevant to targeted speech sound production with min-mod cuing to improve speech intelligibility. 3. The pt will discriminate between speech sounds with 80% accuracy to increase phonemic awareness to promote improved speech intelligibility and functional communication. Additional goals to be added pending further assessment findings. Nursing Home Goals 1. The pt will produce speech with 80% intelligibility to improve her ability to communicate effectively with a variety of partners. 2. Given information of moderate length and complexity presented orally and without access to lip reading, the pt will demonstrate comprehension with 75% accuracy to improve speech sound discrimination necessary for auditory comprehension in functional conversations. 3. Using lip reading as needed , the pt will communicate effectively with a variety of conversation partners within her community in 90% of opportunities, as measured by pt/family report and clinician judgment. Additional goals to be added pending further assessment findings. Treatment Activities Continued training of vowel production targeting short a, u and o sounds. Given minimal pairs, the pt produced CVC words in isolation with 81% acc; in 2-word phrases with 88 % acc; and in 4-word sentences with 88% acc. Occasionally, productions of short u resembled short o sound. Pt was able to correct with feedback and demonstration. Initiated education and training in prosodic features resulting from observations of the pt's tendency to intone upward in words and sentences, which occ interfere with intelligibility and/or comprehensibility from context . Demonstrated variance in intonation for statements vs yes/no questions. The pt returned demonstration and produced both single words and sentences with downward intonation more consistent with standard [place]ese [place] Islander . Home practice materials were provided. Assessment Patient Response to Treatment Good Rehab Potential Excellent Impairments Identified Auditory Processing,Expressive Language,Speech Intelligibility Additional Impairments Identified Expressive/Receptive language with hearing loss, AKINS and Cochlear implant Assessment of Improvement The pt is progressing in accuracy of vowel productions with improved discrimination of both her own speech and others'. She was responsive to education and initial training in prosodic features. Production of certain consonants and vocal resonance continue to contribute to reduced speech intelligibility . Reviewed with Patient Goals,Progress Being Made,Home Exercise Program Patient/Caregiver Understanding Excellent Plan Amount of Therapy Recommended 12 Months Frequency of Treatment Once a Week Length of Session 45 Minutes Treatment Emphasis Next Session Cont training vowels in isolation, CV syllables, CVC words Therapeutic Contents Auditory Comprehension,Client Education,Expressive Language Training,Home Exercise Program ,Intelligibility,Oral Motor Training Provided Patient/Caregiver Instruction Home Exercise Program,Plan of Care,Questions/Concerns Therapy Recommendations Continue with Current Program
--- NOTE | 2021-09-22 16:37 | ST.OPTN ---
Visit Care Team Role Provider Type SALMA Gonzalez Attending Provider Advanced Puff Ironer Family Provider Primary Care Provider Referring Provider Address: [address] [place] [address], [id number] REMOTELY PILOTED VEHICLE CONTROLLER Treatment Note REMOTELY PILOTED VEHICLE CONTROLLER Treatment Note Start: 03/24/21 17:15 Freq: Status: Active Protocol: Document 09/22/21 14:24 RAMÓN (Rec: 09/22/21 14:27 RAMÓN [id number]) Speech Pathology Treatment Note Session Time Visit Start Time 13:30 Visit Stop Time 14:15 Total Visit Minutes 45 Visit Information Visit Number 06/29 Plan of Care Dates 09/22/21 -12/02/21 Insurance Information [facility] Health Plan Setting Treatment Setting Outpatient Care Visit Type Note Type Treatment Note Next Note Type Next Note Type Treatment Note General Information Patient History The pt is a now 41-yr-old female with complete R) hearing loss augmented by cochlear implant (placed 2020) and L) hearing impairment (since childhood) augmented by hearing aid. She is of Moroc[place] decent living with her [place]ino and their 3 [place] She relies heavily on lip reading and interpretation from to understand others. The pt had multiple courses of Speech Therapy during childhood and young adult years, living in [place] for a time as a teenager and attending the [employer] [place] [employer]. Prior to that, she was mainstreamed in oral schools. 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 The pt expressed the desire to improve her speech intelligibility as she becomes accustomed to using the cochlear implant, both by improving articulatory precision and by improving her [place] Citizen language skills. She stated she may like to modify her accent to sound more Filipino. She expressed feeling frustrated with her speech, as it sounds muffled to her, and she finds pronunciation of /s/ and th to be particularly difficult. Since placement of the cochlear implant, she hears high frequency sounds more acutely and finds them distracting and sometimes overwhelming. The pt is moderately proficient in [place] Citizen but states that conversations with her , who speaks little Moroccan, are her only opportunities for meaningful practice with the [place] Citizen language. Her daughters, ages 5, 14 and 16, all speak to her in Moroccan. Particularly because of COVID-19, she socializes very minimally. She uses the [employer] and [employer] Sounds apps on her phone ( recommended by Balloon Artist) to assist with recognition and discrimination of environmental and speech sounds, and she watches YouTube and TV to practice [place] Citizen, as well. The bluetooth on her cell phone and home TV stream directly to her cochlear implant. Subjective Others Present Student Observations/Patient Presentation The pt arrived on time with her , who did not participate in the session. She returns after a 2-month break during which time she was caring for her who underwent surgery. The pt had questions about breath support for speech, sensing there was a difference in the way Moroccan speakers use their breath vs [place] Citizen speakers. Chief Complaint(s) Speech Additional Areas of Concern Auditory discrimination Patient Knowledge/Awareness of REMOTELY PILOTED VEHICLE CONTROLLER Role Excellent in Treatment Patient/Caregiver Compliance with Home Excellent Exercise Program Objective Short Term Goals 1. The pt will perform oral motor tasks relevant to targeted speech sound production with min-mod cuing to improve speech intelligibility. 2. The pt will discriminate between speech sounds with 80% accuracy to increase phonemic awareness to promote improved speech intelligibility and functional communication. Cattle Dealer Goals 1. The pt will produce speech with 80% intelligibility to improve her ability to communicate effectively with a variety of partners. 2. Given information of moderate length and complexity presented orally and without access to lip reading, the pt will demonstrate comprehension with 75% accuracy to improve speech sound discrimination necessary for auditory comprehension in functional conversations. 3. Using lip reading as needed , the pt will communicate effectively with a variety of conversation partners within her community in 90% of opportunities, as measured by pt/family report and clinician judgment. Treatment Activities Education and training provided RE diaphragmatic breath support for voice and speech. Pt initially demonstrated thoracic breathing with little visible diaphragm displacement. Following training and practice, breathing pattern was a greater mix of thoracic and diaphragmatic. Using voiceless [place] Citizen phonemes with biofeedback by way of hands on her stomach, the pt produced phonemes /k/, /p/, /t/, and ch with bursts of breath. She then produced phonemes /f/, /s/ and sh with streams of ( continuous) breath. Using this technique, the pt increased diaphragm involvement and produced greater distinction between phonemes /s/, /k/, sh and ch than previously seen. Needs reinforcemetn. Assessment Patient Response to Treatment Good Rehab Potential Excellent Progress Towards Goals Good Progress Assessment of Overall Progress Improving Assessment of Improvement With biofeedback and visual demonstrations, the pt was stimulable to shifting breath support from thoracic to diaphragmatic and more discriminate productions of troublesome phonemes, particularly /s/, /k/, sh and ch. Plan Amount of Therapy Recommended 2-3 Months Frequency of Treatment Once a Week Length of Session 45 Minutes Therapeutic Contents Auditory Comprehension,Client Education,Expressive Language Training,Home Exercise Program ,Intelligibility,Oral Motor Training Provided Patient/Caregiver Instruction Home Exercise Program,Plan of Care,Questions/Concerns Therapy Recommendations Continue with Current Program
--- NOTE | 2021-09-29 17:12 | ST.OPTN ---
Visit Care Team Role Provider Type SALMA Gonzalez Attending Provider Advanced Motorcycle Subassembly Repairer Family Provider Primary Care Provider Referring Provider Address: [address] [place] [address], [id number] COLLEGE OR UNIVERSITY DEPARTMENT HEAD Treatment Note COLLEGE OR UNIVERSITY DEPARTMENT HEAD Treatment Note Start: 03/24/21 17:15 Freq: Status: Active Protocol: Document 09/29/21 14:03 RAMÓN (Rec: 09/29/21 14:24 RAMÓN [id number]) Speech Pathology Treatment Note Session Time Visit Start Time 12:30 Visit Stop Time 13:15 Total Visit Minutes 45 Visit Information Visit Number 07/30 Plan of Care Dates 09/22/21 -12/02/21 Insurance Information [facility] Health Plan Setting Treatment Setting Outpatient Care Visit Type Note Type Treatment Note Next Note Type Next Note Type Treatment Note General Information Patient History The pt is a now 41-yr-old female with complete R) hearing loss augmented by cochlear implant (placed 2020) and L) hearing impairment (since childhood) augmented by hearing aid. She is of [place] decent living with her [place] and their 3 [place] in the [place]. She relies heavily on lip reading and interpretation from to understand others. The pt had multiple courses of Speech Therapy during childhood and young adult years, living in [place] for a time as a teenager and attending the [employer]. Prior to that, she was mainstreamed in oral schools. 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 The pt expressed the desire to improve her speech intelligibility as she becomes accustomed to using the cochlear implant, both by improving articulatory precision and by improving her Scottish language skills. She stated she may like to modify her accent to sound more Bolivian. She expressed feeling frustrated with her speech, as it sounds muffled to her, and she finds pronunciation of /s/ and th to be particularly difficult. Since placement of the cochlear implant, she hears high frequency sounds more acutely and finds them distracting and sometimes overwhelming. The pt is moderately proficient in Scottish but states that conversations with her , who speaks little Djib[place]ian, are her only opportunities for meaningful practice with the Scottish language. Her daughters, ages 5, 14 and 16, all speak to her in [place]ib[place]ian. Particularly because of COVID-19, she socializes very minimally. She uses the HearoeAras and Colin Sounds apps on her phone ( recommended by Casing Fluid Tender) to assist with recognition and discrimination of environmental and speech sounds, and she watches YouTube and TV to practice Scottish, as well. The bluetooth on her cell phone and home TV stream directly to her cochlear implant. Subjective Others Present Student Observations/Patient Presentation The pt arrived on time with her , who did not participate in the session. No new complaints. Chief Complaint(s) Speech Additional Areas of Concern Auditory discrimination Patient Knowledge/Awareness of COLLEGE OR UNIVERSITY DEPARTMENT HEAD Role Excellent in Treatment Patient/Caregiver Compliance with Home Excellent Exercise Program Objective Short Term Goals 1. The pt will perform oral motor tasks relevant to targeted speech sound production with min-mod cuing to improve speech intelligibility. 2. The pt will discriminate between speech sounds with 80% accuracy to increase phonemic awareness to promote improved speech intelligibility and functional communication. Mcc Goals 1. The pt will produce speech with 80% intelligibility to improve her ability to communicate effectively with a variety of partners. 2. Given information of moderate length and complexity presented orally and without access to lip reading, the pt will demonstrate comprehension with 75% accuracy to improve speech sound discrimination necessary for auditory comprehension in functional conversations. 3. Using lip reading as needed , the pt will communicate effectively with a variety of conversation partners within her community in 90% of opportunities, as measured by pt/family report and clinician judgment. Treatment Activities Continued training in speech articulation using Apraxia Therapy sandy that targets visual and auditory presentation of words/phonemes and repetition. The pt produced clear articulation with all phonemes with exception of /s/, /z/, /t/, and /k/. Trained pt in production of voiceless plossives and ch with tissue placed in front of face, displacing it with the production of each sound. The pt was responsive to this and verbalized understanding. Will f/u next session. Assessment Patient Response to Treatment Excellent Rehab Potential Excellent Progress Towards Goals Good Progress Assessment of Overall Progress Improving Assessment of Improvement The pt is making excellent progress with production of vowels. Fricative and voiceless stop consonants continue to create the greatest challenge for speech intelligibility. The pt remains highly motivated. Reviewed with Patient Goals,Progress Being Made,Home Exercise Program Patient/Caregiver Understanding Excellent Plan Amount of Therapy Recommended 2-3 Months Frequency of Treatment Once a Week Length of Session 45 Minutes Therapeutic Contents Auditory Comprehension,Client Education,Expressive Language Training,Home Exercise Program ,Intelligibility,Oral Motor Training Provided Patient/Caregiver Instruction Home Exercise Program,Plan of Care,Questions/Concerns Therapy Recommendations Continue with Current Program
--- NOTE | 2021-10-07 11:17 | ST.OPTN ---
Visit Care Team Role Provider Type SALMA Gonzalez Attending Provider Advanced Wood Type Finisher Family Provider Primary Care Provider Referring Provider Address: [address] [place] [address], [id number] SOUND TECHNICIAN SUPERVISOR Treatment Note SOUND TECHNICIAN SUPERVISOR Clinical Instructor Line Start: 10/07/21 11:11 Freq: Status: Active Protocol: Document 10/07/21 11:11 RAMÓN (Rec: 10/07/21 11:11 RAMÓN [id number]) Clinical Instructor Signature Clinical Instructor Clinical Instructor Yes SOUND TECHNICIAN SUPERVISOR Treatment Note Start: 03/24/21 17:15 Freq: Status: Active Protocol: Document 10/06/21 16:40 EK (Rec: 10/07/21 09:19 EK [id number]) Speech Pathology Treatment Note Session Time Visit Start Time 12:30 Visit Stop Time 13:15 Total Visit Minutes 45 Visit Information Visit Number 08/29 Plan of Care Dates 09/22/21 -12/02/21 Insurance Information [facility] Plan Setting Treatment Setting Outpatient Care Visit Type Note Type Treatment Note Next Note Type Next Note Type Treatment Note General Information Patient History The pt is a now 41-yr-old female with complete R) hearing loss augmented by cochlear implant (placed 2020) and L) hearing impairment (since childhood) augmented by hearing aid. She is of [place] decent living with her [place] and their 3 [place]. She relies heavily on lip reading and interpretation from to understand others. The pt had multiple courses of Speech Therapy during childhood and young adult years, living in [place] for a time as a teenager and attending the [employer]. Prior to that, she was mainstreamed in oral schools. 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 The pt expressed the desire to improve her speech intelligibility as she becomes accustomed to using the cochlear implant, both by improving articulatory precision and by improving her Northern Irish language skills. She stated she may like to modify her accent to sound more Norwegian. She expressed feeling frustrated with her speech, as it sounds muffled to her, and she finds pronunciation of /s/ and th to be particularly difficult. Since placement of the cochlear implant, she hears high frequency sounds more acutely and finds them distracting and sometimes overwhelming. The pt is moderately proficient in Northern Irish but states that conversations with her , who speaks little Bermudian, are her only opportunities for meaningful practice with the Northern Irish language. Her daughters, ages 5, 14 and 16, all speak to her in [place]erm[place]ian. Particularly because of COVID-19, she socializes very minimally. She uses the Hearoes and Colin Sounds apps on her phone ( recommended by Mammalogy Teacher) to assist with recognition and discrimination of environmental and speech sounds, and she watches YouTube and TV to practice Northern Irish, as well. The bluetooth on her cell phone and home TV stream directly to her cochlear implant. Subjective Others Present Additional Therapist Observations/Patient Presentation The pt arrived on time and unaccompanied. No new complaints. Session conducted and note written by student SOUND TECHNICIAN SUPERVISOR Brook Peoples under SOUND TECHNICIAN SUPERVISOR supervision. Chief Complaint(s) Speech Additional Areas of Concern Auditory discrimination Patient Knowledge/Awareness of SOUND TECHNICIAN SUPERVISOR Role Excellent in Treatment Patient/Caregiver Compliance with Home Excellent Exercise Program Objective Short Term Goals 1. The pt will perform oral motor tasks relevant to targeted speech sound production with min-mod cuing to improve speech intelligibility. 2. The pt will discriminate between speech sounds with 80% accuracy to increase phonemic awareness to promote improved speech intelligibility and functional communication. Shelter Goals 1. The pt will produce speech with 80% intelligibility to improve her ability to communicate effectively with a variety of partners. 2. Given information of moderate length and complexity presented orally and without access to lip reading, the pt will demonstrate comprehension with 75% accuracy to improve speech sound discrimination necessary for auditory comprehension in functional conversations. 3. Using lip reading as needed , the pt will communicate effectively with a variety of conversation partners within her community in 90% of opportunities, as measured by pt/family report and clinician judgment. Treatment Activities Continued training in speech articulation by utilizing minimal pairs to highlight the differences between voiced and unvoiced sounds. Specific phonemes targeted include: /k/ , /g/, /t/, /d/, and /m/. With a direct model of a word containing the target phoneme, the pt's productions improved over the course of the session. /g/ appeared to be the most challenging but cueing was faded as the session progressed. Skilled feedback was provided following each production to which pt was receptive. Assessment Patient Response to Treatment Excellent Rehab Potential Excellent Progress Towards Goals Good Progress Assessment of Overall Progress Improving Assessment of Improvement The pt made excellent progress over the course of the week and session. Her production of /k/ in particular was much improved. Pt was receptive to all skilled feedback provided. Reviewed with Patient Goals,Progress Being Made,Home Exercise Program Patient/Caregiver Understanding Excellent Plan Amount of Therapy Recommended 2-3 Months Frequency of Treatment Once a Week Length of Session 45 Minutes Therapeutic Contents Auditory Comprehension,Client Education,Expressive Language Training,Home Exercise Program ,Intelligibility,Oral Motor Training Provided Patient/Caregiver Instruction Home Exercise Program,Plan of Care,Questions/Concerns Therapy Recommendations Continue with Current Program
--- NOTE | 2021-11-10 15:21 | ST.OPDS ---
Visit Care Team Role Provider Type SALMA Gonzalez Attending Provider Advanced Farmer And Grazier Family Provider Primary Care Provider Referring Provider Address: [address] [place] [address], [id number] ROUTER OPERATOR RADIAL Treatment Note ROUTER OPERATOR RADIAL Clinical Instructor Line Start: 10/07/21 11:11 Freq: Status: Active Protocol: Document 11/03/21 11:44 RAMÓN (Rec: 11/04/21 11:45 RAMÓN [id number]) Clinical Instructor Signature Clinical Instructor Clinical Instructor Yes ROUTER OPERATOR RADIAL Treatment Note Start: 03/24/21 17:15 Freq: Status: Active Protocol: Document 11/10/21 14:53 RAMÓN (Rec: 11/10/21 15:21 RAMÓN [id number]) Speech Pathology Treatment Note Session Time Visit Start Time 13:30 Visit Stop Time 14:20 Total Visit Minutes 50 Visit Information Visit Number 7 Plan of Care Dates 09/22/21 -12/02/21 Insurance Information [facility] Plan Setting Treatment Setting Outpatient Care Visit Type Note Type Discharge Summary General Information Patient History The pt is a now 41-yr-old female with complete R) hearing loss augmented by cochlear implant (placed 2020) and L) hearing impairment (since childhood) augmented by hearing aid. She is of Cyp[place] decent living with her [place]ammarinese and their 3 [place] She relies heavily on lip reading and interpretation from to understand others. The pt had multiple courses of Speech Therapy during childhood and young adult years, living in [place] for a time as a teenager and attending the [employer]. Prior to that, she was mainstreamed in oral schools. 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 The pt expressed the desire to improve her speech intelligibility as she becomes accustomed to using the cochlear implant, both by improving articulatory precision and by improving her [place] Islander language skills. She stated she may like to modify her accent to sound more Sammarinese. She expressed feeling frustrated with her speech, as it sounds muffled to her, and she finds pronunciation of /s/ and th to be particularly difficult. Since placement of the cochlear implant, she hears high frequency sounds more acutely and finds them distracting and sometimes overwhelming. The pt is moderately proficient in [place] Islander but states that conversations with her , who speaks little Cypriot, are her only opportunities for meaningful practice with the [place] Islander language. Her daughters, ages 5, 14 and 16, all speak to her in Cypriot. Particularly because of COVID-19, she socializes very minimally. She uses the HearoeWeemba and Colin Sounds apps on her phone ( recommended by Acoustical Tile Drill Press Operator) to assist with recognition and discrimination of environmental and speech sounds, and she watches YouTube and TV to practice [place] Islander, as well. The bluetooth on her cell phone and home TV stream directly to her cochlear implant. Subjective Observations/Patient Presentation The pt arrived on time and unaccompanied. No new complaints. The pt will be discharged today d/t exhaustion of insurance benefits. Chief Complaint(s) Speech Additional Areas of Concern Auditory discrimination Patient Knowledge/Awareness of ROUTER OPERATOR RADIAL Role Excellent in Treatment Patient/Caregiver Compliance with Home Excellent Exercise Program Objective Short Term Goals 1. The pt will perform oral motor tasks relevant to targeted speech sound production with min-mod cuing to improve speech intelligibility. GOOD PROGRESS; GOAL NOT MET 2. The pt will discriminate between speech sounds with 80% accuracy to increase phonemic awareness to promote improved speech intelligibility and functional communication. GOOD PROGRESS; GOAL NOT MET Shelter Goals 1. The pt will produce speech with 80% intelligibility to improve her ability to communicate effectively with a variety of partners. SOME PROGRESS; GOAL NOT MET 2. Given information of moderate length and complexity presented orally and without access to lip reading, the pt will demonstrate comprehension with 75% accuracy to improve speech sound discrimination necessary for auditory comprehension in functional conversations. EXCELLENT PROGRESS; GOAL NOT MET 3. Using lip reading as needed , the pt will communicate effectively with a variety of conversation partners within her community in 90% of opportunities, as measured by pt/family report and clinician judgment. Treatment Activities ROUTER OPERATOR RADIAL informed pt of resources via [facility] Aural Rehab clinic as well as [facility] [employer] [facility] in [facility] that may further assist her with advancing aural and speech skills. She expressed appreciation. Continued to target discrimination and production of ch and sh in initial and final positions of words in isolation and initial position of words in phrases. Ch initial, 82% acc consistent in isolated words and phrases; ch final, 93% acc. Sh initial, 73% acc in isolated words and 66% acc in phrases with errors resembling ch. Ch in final position of words, 97% acc. Sh in final position of words, 56% acc, again with errors resembling ch. Additional errors included dropping of vowels following these phonemes, demonstrating difficulty shifting from voiceless to voiced phonemes. The pt benefited from segmenting phonemes in words, extending vowel sounds following ch and sh, and progressively rejoining phonemes into fluid words. She also benefited from consideration of /t/ in ch, which stops the flow of air and is a discriminating feature between the phonemes. Discussed POC. Pt will continue with HEP tasks and be discharged from services at this time. Assessment Patient Response to Treatment Excellent Rehab Potential Excellent Impairments Identified Speech Progress Towards Goals Good Progress Assessment of Overall Progress Improving Assessment of Improvement Over the course of treatment, the pt has made very good progress with aural discrimination and production of vowel sounds and targeted consonants. Production of ch and sh continue to be challenging to her, but with effort and reduced rate of speech, articulation of these phonemes is improved. Throughout therapy, the pt has demonstrated excellent attention and motivation and has been consistent with HEP. It is recommended that the pt continue therapy at [facility] Speech and Hearing clinic, where she may be able to receive training in both auditory discrimination and speech production without cost and insurance requirements. The pt was agreeable to this but had concern of travel time and expense, as this clinic is more than an hour's distance from her home. Reviewed with Patient Goals,Progress Being Made,Home Exercise Program Patient/Caregiver Understanding Excellent Plan Therapeutic Contents Auditory Comprehension,Client Education,Expressive Language Training,Home Exercise Program ,Intelligibility,Oral Motor Training Provided Patient/Caregiver Instruction Home Exercise Program,Plan of Care,Questions/Concerns Therapy Recommendations Discharge from Speech Therapy
== END 2022-03-26 15:01 | disposition home or self-care (01) ==
LOC: SP 13:30
PROVIDERS: Family Provider Registered Nurse Diabetes Educator; PCP Registered Nurse Diabetes Educator; Referring Provider Registered Nurse Diabetes Educator; Visit Provider Registered Nurse Diabetes Educator
DX: Z96.21 Cochlear implant status (principal)
CPT/HCPCS: 92507; 92522

== ENCOUNTER → 2024-07-21 09:57 | Outpatient (CLI) | payer OTHER, SELFPAY ==
--- NOTE | 2024-07-21 09:59 | DI.MG.S_ITS ---
MM screening mammo BI: 07/21/2024. BI-RADS: 1 CLINICAL: 44-year old female for bilateral screening mammogram. Tyrer-Cuzick lifetime risk of 12.6%. No personal or first-degree family history of breast cancer. Current reported family history of breast cancer: maternal grandmother. PRIOR EXAMS: None. This is a baseline mammogram. MAMMOGRAPHY TECHNIQUE: 2D and 3D (tomosynthesis) digital mammographic views obtained, with additional images as needed for full coverage. Current study was also evaluated with a Computer Aided Detection (CAD) system. DENSITY C. The breasts are heterogeneously dense, which may obscure small masses. MAMMOGRAPHY FINDINGS Bilateral: No suspicious mass, asymmetry, microcalcification, or other abnormality seen. IMPRESSION: * No evidence of malignancy. RECOMMENDATIONS Bilateral * Annual screening mammography. OVERALL ASSESSMENT CATEGORY BI-RADS-1: Negative. The [employer] recommends annual screening mammography beginning at age 40 for women with average risk of breast cancer. ELECTRONICALLY SIGNED: Kecia Briseno M.D. on 07/21/2024 at 02:47:27 PM PT Interpreting Station ID: [id number]
== END ==
PROVIDERS: Family Provider Registered Nurse Diabetes Educator; PCP Registered Nurse Diabetes Educator; Referring Provider Registered Nurse Diabetes Educator; Visit Provider Registered Nurse Diabetes Educator
DX: Z12.31 Encounter for screening mammogram for malignant neoplasm of breast (principal); Z80.3 Family history of malignant neoplasm of breast; R92.333 Mammographic heterogeneous density, bilateral breasts
CPT/HCPCS: 77063; 77067